=== PATIENT | female | born 1965 | race Caucasian/White ===

== ENCOUNTER 2020-11-22 20:40 | Emergency (ER) | payer OTHER ==
--- NOTE | 2020-11-22 20:53 | EDM.PDOC ---
ED HPI GENERAL MEDICAL PROBLEM - General Chief Complaint: General Stated Complaint: left flank pain Time Seen by Provider: 11/22/20 20:47 Source of Information: Reports: Patient, Family (), Old Records ([facility] EMR. No paper hospital chart available.) History Limitations: Reports: No Limitations - History of Present Illness INITIAL COMMENTS - FREE TEXT/NARRATIVE: The patient was brought to the emergency room via private automobile by her for evaluation of 10/10 sharp left lower lateral pleuritic type symptoms with symptoms starting at about 8 AM this morning. She denies any local injury, known exposure to infection, etc. with no medications or treatment to this point. The patient denies any chest pressure, heart flutter, dizziness, o rthostasis, orthopnea, diaphoresis, paresthesias, recent decreased exercise tolerance, or any other anginal-type symptoms. No recent history of abdominal pain, heartburn, nausea, diarrhea, melena, gross hematochezia, or any food intolerance, including fatty foods, etc. with normal bowel movement yesterday. She denies any gross hematuria, colic, or the UTI symptoms. The patient also denies any recent fever, cough, wheezing, dyspnea, etc., although some difficulty with taking a deep breath as above. Onset: Today, Gradual Onset Date: 11/22/20 Onset Time: 08:00 Duration: Constant, Getting Worse Location: Reports: Chest. Denies: Head, Face, Neck, Abdomen, Back, Pelvis, Upper Extremity, Left, Upper Extremity, Right, Lower Extremity, Left, Lower Extremity, Right, Radiates to Quality: Reports: Sharp Severity: Severe Improves with: Reports: Rest Worsens with: Reports: Breathing Context: Reports: Other (As above). Denies: Sick Contact, Trauma Associated Symptoms: Reports: Confusion, Chest Pain (Pleurisy). Denies: Cough, cough w sputum, Diaphoresis, Fever/Chills, Headaches, Loss of Appetite, Malaise, Nausea/Vomiting, Rash, Shortness of Breath, Syncope, Weakness Treatments DOCUMENTATION LEAD: Reports: Other (see below) (None) - Related Data Allergies Allergy/AdvReac Type Severity Reaction Status Date / Time No Known Allergies Allergy Verified 11/22/20 20:41 Home Meds: Home Meds Calcium Carbonate [Calcium] 500 mg PO DAILY 11/22/20 [History] FLUoxetine [PROzac] 20 mg PO DAILY 11/22/20 [History] Fish Oil/Beverly-3 Fatty Acids [Fish Oil 1,000 MG] 1 each PO DAILY 11/22/20 [History] Multivitamin [Multi-Vitamin Daily] 1 each PO DAILY 11/22/20 [History] Vitamin E 5,000 unit PO DAILY 11/22/20 [History] Past Medical History HEENT History: Reports: Impaired Vision, Other (See Below). Denies: Allergic Rhinitis, Cataract, Glaucoma, Hard of Hearing, Macular Degeneration, Retinal Detachment Other HEENT History: Patient does wear glasses. Cardiovascular History: Reports: Other (See Below). Denies: Afib, Aneurysm, Arrhythmia, Blood Clots/VTE/DVT, CAD, Cardiomyopathy, Heart Failure, Heart Murmur, High Cholesterol, Hypertension, HI, PVD, Syncope Other Cardiovascular History: Nonsymptomatic hypertension. Respiratory History: Reports: None. Denies: Asthma, Bronchitis, Recurrent, C OPD, Intubation, Previous, PE, Pneumonia, Recurrent, Pneumothorax, Sleep Apnea, TB Gastrointestinal History: Reports: None. Denies: Bowel Obstruction, Celiac Disease, Cholelithiasis, Chronic Constipation, Chronic Diarrhea, Colon Polyp, Fecal Incontinence, Gastritis, GERD, GI Bleed, Hepatitis, Hiatal Hernia, Irritable Bowel Syndrome, Jaundice, Pancreatitis Genitourinary History: Reports: None. Denies: Acute Renal Failure, Chronic Renal Insuffiency, Renal Calculus, Retention, Urinary, STD, Urinary Incontinence, UTI, Recurrent ASSEMBLING INSPECTOR History: Reports: . Denies: Dysfunctional Uterine Bleeding, Endometriosis, Fibroids, Polycystic Ovaries, Spontaneous : 6 Para: 6 LMP (Approximate): Other (See Below) Other ASSEMBLING INSPECTOR History: Menses currently. Full term without complications during pregnancies or deliveries Musculoskeletal History: Reports: Arthritis, Back Pain, Chronic, Fracture, Neck Pain, Chronic, Osteoarthritis, Other (See Below). Denies: Amputation, Gout, RA, SLE Other Musculoskeletal History: Right ankle fracture in 2011. Phalangeal fracture of digit #2 of the right hand in about 2017. Neurological History: Reports: Concussion, Head Trauma, Neuropathy, Peripheral, Other (See Below). Denies: CVA, Headaches, Chronic, Migraines, MS, Parkinson's, Seizure, TIA, Vertigo Other Neuro History: Head concussion at about 10 years of age. Psychiatric History: Reports: Anxiety, Depression, Psych Hospitalization(s), Suicidal Ideation, Other (See Below). Denies: Abuse, Victim of, ADD, ADHD, Addiction, Dementia, PTSD, Suicide Attempt Other Psychiatric History: Psychiatric hospitalizations in 1985, 1986, and 1994. Endocrine/Metabolic History: Reports: None. Denies: Diabetes, Gestational, Diabetes, Type I, Diabetes, Type II, Diabetes Mellitus, Type 3c, Hypothyroidism, IDDM, Obesity/BMI 30+ Hematologic History: Reports: Blood Transfusion(s), Other (See Below). Denies: Anemia, Iron Deficiency Other Hematologic History: Blood transfusion after first child's delivery secondary to post hemorrhage. Immunologic History: Reports: None. Denies: AIDS, HIV, SLE Oncologic (Cancer) History: Reports: None. Denies: Basal Cell Carcinoma, Breast, Cervix, Colon, Hodgkin's Lymphoma, Leukemia, Lymphoma, Malignant Melanoma, Non-Hodgkin's Lymphoma, Ovarian, Squamous Cell Carcinoma, Uterine Dermatologic History: Reports: None. Denies: Eczema, Psoriasis - Infectious Disease History Infectious Disease History: Reports: Chicken Pox. Denies: C-Difficile, Measles, Meningitis, Mononucleosis, MRSA, Mumps, Novel Coronavirus (No immunizations to this point), Pertussis (Whooping Cough), Rheumatic Fever, Rubella, Scarlet Fever, Shingles, TB - Past Surgical History Head Surgeries/Procedures: Reports: None HEENT Surgical History: Reports: Oral Surgery, Other (See Below). Denies: A denoidectomy, Cataract Surgery, Eye Surgery, Laser Surgery, LASIK, Myringotomy w Tube(s), Naso-Sinus Surgery, Tonsillectomy Other HEENT Surgeries/Procedures: [place] teeth extraction x2 at about age 41. Cardiovascular Surgical History: Reports: None. Denies: Varicose Respiratory Surgical History: Reports: None. Denies: Thoracentesis GI Surgical History: Reports: Colonoscopy, Other (See Below). Denies: Appendectomy, Cholecystectomy, EGD, Hernia, Abdominal, Hernia, Inguinal, Hernia Repair/Other, Polypectomy Other GI Surgeries/Procedures: Colonoscopy in about 2012. Female Surgical History: Reports: Tubal Ligation, Other (See Below). Denies: Breast Biopsy, Section, D&C, Hysterectomy, Oophorectomy, Salpingo- Oophorectomy Other Female Surgeries/Procedures: Bilateral tubal ligation at age 44. Endocrine Surgical History: Reports: None. Denies: Thyroid Biopsy Neurological Surgical History: Reports: None. Denies: C-Spine, Discectomy, Laminectomy, Lumbar Spine, Sacral Spine, Spinal Fusion, Thoracic Spine, Vertebroplasty Musculoskeletal Surgical History: Reports: None. Denies: Arthroscopic Procedure, Carpal Tunnel, Ganglion Cyst, Joint Replacement, ORIF, Shoulder Surgery Oncologic Surgical History: Reports: None Dermatological Surgical History: Reports: None - Past Imaging History Past Imaging History: Reports: Mammogram (Last on 07/13/2020.) Social & Family History - Tobacco Use Tobacco Use Status *Q: Never Tobacco User Tobacco Use Within Last Twelve Months: No Used Tobacco, but Quit: No Smoking Cessation Information Provided To Patient: No Second Hand Smoke Exposure: No Second Hand Smoke Education Provided: No - Caffeine Use Caffeine Use: Reports: Soda (12 sodas per month). Denies: Coffee, Energy Drinks, Tea - Alcohol Use Alcohol Use History: No Days Per Week of Alcohol Use: 0 Number of Drinks Per Day: 0 Number of Drinks Per Day Comment: No previous DWIs, problems with alcohol abuse, etc. 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 ED EXAM, GENERAL - Physical Exam Exam: See Below Exam Limited By: No Limitations General Appearance: Alert, WD/WN, No Apparent Distress, Anxious (Mild) Eye Exam: Bilateral Eye: EOMI, Normal Inspection (No vertigo or nystagmus. Patient is wearing glasses.), PERRL Ears: Normal External Exam, Normal Canal, Hearing Grossly Normal, Normal TMs Nose: Normal Inspection, Normal Mucosa, No Blood Throat/Mouth: Normal Inspection, Normal Lips, Normal Teeth, Normal Gums, Normal Oropharynx, Normal Voice, No Airway Compromise. No: Dysphagia, Perioral Cyanosis Head: Atraumatic, Normocephalic. No: Facial Swelling, Facial Tenderness, Sinus Tenderness Neck: Normal Inspection, Supple, Non-Tender, Full Range of Motion. No: Carotid Bruit, Lymphadenopathy (L), Lymphadenopathy (R), Thyromegaly Respiratory/Chest: No Respiratory Distress, Lungs Clear, Normal Breath Sounds, No Accessory Muscle Use. No: Chest Non-Tender (By palpation however moderate pleuritic type symptoms with deep inspiration), Pleural Rub, Retractions Cardiovascular: Normal Peripheral Pulses, Regular Rate, Rhythm, No Edema, No Gallop, No JVD, No Murmur, No Rub. No: Gallop/S3, Gallop/S4, Friction Rub Peripheral Pulses: 2+: Radial (L), Radial (R), Dorsalis Pedis (L), Dorsalis Pedis (R) GI/Abdominal: Normal Bowel Sounds, Soft, Non-Tender, No Organomegaly, No Distention, No Abnormal Bruit, No Mass, Other (Mild obesity). No: Guarding (Female) Exam: Deferred Rectal (Female) Exam: Deferred Back Exam: Normal Inspection, Full Range of Motion. No: CVA Tenderness (L), CVA Tenderness (R), Muscle Spasm Extremities: Normal Inspection, Normal Range of Motion, Non-Tender, No Pedal Edema, Normal Capillary Refill. No: Nirmala's Sign Neurological: Alert, Oriented, CN II-XII Intact, Normal Cognition, Normal Gait, Normal Reflexes (Negative Babinski's), No Motor/Sensory Deficits Psychiatric: Anxious (Mild), Depressed Mood (Mild) Skin Exam: Warm, Dry, Intact, Normal Color, No Rash. No: Diaphoretic, Ecchymosis, Petechiae, Wound/Incision Lymphatic: No Adenopathy Course - Vital Signs Last Recorded V/S: Last Vital Signs Temp 37.3 C 11/22/20 20:47 Pulse 68 11/22/20 21:52 Resp 12 11/22/20 21:52 BP 99/68 11/22/20 21:52 Pulse Ox 100 11/22/20 21:52 Vital Signs - 24 hr 11/22/20 11/22/20 11/22/20 20:41 20:47 21:30 Temperature [ 37.3 C Temporal] Pulse, 68 66 66 Peripheral [ Right Pulse Oximetry] Respiratory 17 12 14 Rate Blood Pressure 98/73 129/64 119/62 [Right Upper Arm] O2 Sat by Pulse 98 98 98 Oximetry 11/22/20 21:52 Temperature [ Temporal] Pulse, 68 Peripheral [ Right Pulse Oximetry] Respiratory 12 Rate Blood Pressure 99/68 [Right Upper Arm] O2 Sat by Pulse 100 Oximetry - Orders/Labs/Meds Orders: Active Orders 24 hr Category Date Time Status Cardiac Monitoring [RC] CONTINUOUS Care 11/22/20 20:54 Active Communication Order [RC] ROUTINE Care 11/22/20 20:54 Active Oxygen Therapy, ED [RC] CONTINUOUS Care 11/22/20 20:54 Active Peripheral IV Care [RC] . DIRECTED Care 11/22/20 20:54 Active Pulse Oximetry [RC] CONTINUOUS Care 11/22/20 20:54 Active Up With Assistance [RC] ASDIRECTED Care 11/22/20 20:54 Active Nothing Per Oral Diet [DIET] Diet 11/22/20 Breakfast Active Chest 2V [CR] Stat Exams 11/22/20 20:54 Taken Chest PE [Ang Chest] [CT] Stat Exams 11/22/20 21:54 Stop Req CULTURE BLOOD [BC] Stat Lab 11/22/20 21:05 Received CULTURE BLOOD [BC] Stat Lab 11/22/20 21:25 Received Sodium Chloride 0.9% [Saline Flush] Med 11/22/20 20:53 Active 10 ml FLUSH ASDIRECTED PRN Blood Culture x2 Reflex Set [OM.PC] Stat Oth 11/22/20 20:54 Ordered Obtain Past Medical Record [OM.PC] Stat Oth 11/22/20 20:54 Active Peripheral IV Insertion Adult [OM.PC] Stat Oth 11/22/20 20:54 Ordered Resuscitation Status Routine Resus Stat 11/22/20 20:53 Ordered Medication Orders Sodium Chloride (Sodium Chloride 0.9% 10 Ml Syringe) 10 ml FLUSH ASDIRECTED PRN PRN Reason: Keep Vein Open Last Admin: 11/22/20 22:15 Dose: 10 ml Documented by: Admin: 11/22/20 21:11 Dose: 10 ml Documented by: Admin: 11/22/20 21:07 Dose: 10 ml Documented by: MARLINE Labs: Laboratory Tests 11/22/20 11/22/20 11/22/20 Range/Units 21:00 21:05 21:05 WBC 6.0 (4.0-10.2) K/uL RBC 3.77 (3.77-5.09) M/uL Hgb 11.9 (11.7-15.5) g/dL Hct 35.9 (34.0-46.0) % MCV 95.2 (84.0-98.0) fL MCH 31.6 (28.2-33.3) pg MCHC 33.1 (31.7-36.0) g/dL RDW 12.2 (11.2-14.1) % Plt Count 241 (150-350) K/uL Neut % (Auto) 63.9 (45.0-80.0) % Lymph % (Auto) 24.4 (10.0-50.0) % [place] % (Auto) 10.0 (2.0-14.0) % Eos % (Auto) 1.5 (0.0-5.0) % Baso % (Auto) 0.2 (0.0-2.0) % Neut # (Auto) 3.86 (1.40-7.00) K/uL Lymph # (Auto) 1.47 (0.50-3.50) K/uL [place] # (Auto) 0.60 (0.00-1.00) K/uL Eos # (Auto) 0.09 (0.00-0.50) K/uL Baso # (Auto) 0.01 (0.00-0.20) K/uL PT 9.6 (9.5-12.0) SEC INR 1.0 APTT 24.1 L (24.5-32.8) SEC D-Dimer, Quantitative (0-400) ng/mL Sodium (136-145) mmol/L Potassium (3.5-5.1) mmol/L Chloride (98-107) mmol/L Carbon Dioxide (21.0-32.0) mmol/L BUN (7-18) mg/dL Creatinine (0.51-1.17) mg/dL Est Cr Clr Drug Dosing Estimated GFR (MDRD) mL/min Glucose (70-99) mg/dL Lactic Acid (0.4-2.0) mmol/L Calcium (8.5-10.1) mg/dL Magnesium (1.8-2.4) mg/dL Total Bilirubin (0.2-1.0) mg/dL AST (15-37) U/L ALT (12-78) U/L Alkaline Phosphatase (46-116) IU/L Total Protein (6.4-8.2) g/dL Albumin (3.4-5.0) g/dL SARS-CoV-2 RNA (CHETAN) Negative (NEGATIVE) 11/22/20 11/22/20 11/22/20 Range/Units 21:05 21:05 21:05 WBC (4.0-10.2) K/uL RBC (3.77-5.09) M/uL Hgb (11.7-15.5) g/dL Hct (34.0-46.0) % MCV (84.0-98.0) fL MCH (28.2-33.3) pg MCHC (31.7-36.0) g/dL RDW (11.2-14.1) % Plt Count (150-350) K/uL Neut % (Auto) (45.0-80.0) % Lymph % (Auto) (10.0-50.0) % [place] % (Auto) (2.0-14.0) % Eos % (Auto) (0.0-5.0) % Baso % (Auto) (0.0-2.0) % Neut # (Auto) (1.40-7.00) K/uL Lymph # (Auto) (0.50-3.50) K/uL [place] # (Auto) (0.00-1.00) K/uL Eos # (Auto) (0.00-0.50) K/uL Baso # (Auto) (0.00-0.20) K/uL PT (9.5-12.0) SEC INR APTT (24.5-32.8) SEC D-Dimer, Quantitative 705 H (0-400) ng/mL Sodium 144 (136-145) mmol/L Potassium 4.1 (3.5-5.1) mmol/L Chloride 106 (98-107) mmol/L Carbon Dioxide 30.3 (21.0-32.0) mmol/L BUN 16 (7-18) mg/dL Creatinine 1.01 (0.51-1.17) mg/dL Est Cr Clr Drug Dosing TNP Estimated GFR (MDRD) 57 mL/min Glucose 103 H (70-99) mg/dL Lactic Acid 0.6 (0.4-2.0) mmol/L Calcium 9.2 (8.5-10.1) mg/dL Magnesium 2.2 (1.8-2.4) mg/dL Total Bilirubin 0.2 (0.2-1.0) mg/dL AST 27 (15-37) U/L ALT 31 (12-78) U/L Alkaline Phosphatase 90 (46-116) IU/L Total Protein 6.2 L (6.4-8.2) g/dL Albumin 3.4 (3.4-5.0) g/dL SARS-CoV-2 RNA (CHETAN) (NEGATIVE) Meds: Medications Generic Name Dose Route Start Last Admin Trade Name Freq PRN Reason Stop Dose Admin Sodium Chloride 10 ml 11/22/20 20:53 11/22/20 22:15 Sodium Chloride 0.9% 10 Ml Syringe FLUSH 10 ml ASDIRECTED PRN Administration Keep Vein Open Discontinued Medications Generic Name Dose Route Start Last Admin Trade Name Freq PRN Reason Stop Dose Admin Famotidine 40 mg 11/22/20 20:58 11/22/20 21:05 Famotidine 20 Mg/2 Ml Sdv IVPUSH 11/22/20 20:59 40 mg ONETIME ONE Administration Ketorolac Tromethamine 30 mg 11/22/20 20:58 11/22/20 21:05 Ketorolac 30 Mg/Ml Sdv IVPUSH 11/22/20 20:59 30 mg ONETIME ONE Administration Methylprednisolone Sodium Succinate 125 mg 11/22/20 22:00 11/22/20 22:15 Methylprednisolone Sodium Succinate 125 Mg/2 Ml Sdv IVPUSH 11/22/20 22:01 125 mg ONETIME ONE Administration - Radiology Interpretation Free Text/Narrative:: equipment monitor phototypesetting shows normal sinus rhythm with heart rate in the 60s with no ectopy or arrhythmia. Chest x-ray, PA and lateral, shows mild possible pulmonary obstructive disease with no pulmonary infiltrates, cardiomegaly, CHF, pneumothorax, etc. Mild hiatal hernia noted. Mild osteoarthritic changes noted in the thoracic spine. Departure - Departure Time of Disposition: 22:30 Disposition: Home, Self-Care 01 Condition: Good Clinical Impression: Pleurisy, Mixed anxiety and depressive disorder, D-dimer, elevated Osteoarthritis Qualifiers: Osteoarthritis location: multiple joints Osteoarthritis type: primary Qualified Code(s): M89.49 - Other hypertrophic osteoarthropathy, multiple sites - Discharge Information *PRESCRIPTION DRUG MONITORING PROGRAM REVIEWED*: Not Applicable *COPY OF PRESCRIPTION DRUG MONITORING REPORT IN PATIENT JONES: Not Applicable Instructions: Pleurisy, [id number] Referrals: Jacklyn Vivar PA [Primary Care Provider] - Forms: ED Department Discharge Additional Instructions: 1. Followup with your regular provider in 10-14 days as directed for reevaluation and recommended repeat D-dimer. Bring these discharge instructions with you to that visit. 2. Tylenol 650 mg by mouth every 4 hours and/or OTC ibuprofen 2-3 tabs by mouth every 6 hours with food as directed./needed. You may stagger these medications for 48-72 hours only, which essentially means that you are receiving a pain medication about every 2 hours. Next dose of ibuprofen as needed in 6 hours secondary to medications given in the emergency room. 3. The hospital will call you tomorrow concerning recommended venous Doppler studies of your lower extremities with possible additional CTA of the chest depending on availability. 4. Immediately after this visit verify that your cellular telephone's voicemail has been activated and is empty. Also verify that your home telephone's answering machine is operating properly and has space to receive messages. Note that it is sometimes necessary for us to be able to contact you at a later date to discuss your medical care. 5. Please remember that we are ALWAYS here for you and want to answer any questions you may have. Feel free to call the hospital any time and we call you back ALLIE. 6. Recommend to get a COVID-19 immunization ALLIE once current symptoms resolve. Sepsis Event Note (ED) - Focused Exam Vital Signs: Vital Signs Temp Pulse Resp BP Pulse Ox 11/22/20 21:52 68 12 99/68 100 11/22/20 21:30 66 14 119/62 98 11/22/20 20:47 37.3 C 66 12 129/64 98 11/22/20 20:41 68 17 98/73 98 - Problem List & Annotations (1) Pleurisy SNOMED Code(s): 319321136 Code(s): R09.1 - PLEURISY Status: Acute Priority: High Current Visit: Yes Onset Date: 11/22/20 Annotation/Comment:: IV Toradol given in the emergency room with overall good results additional IV Pepcid as GI prophylaxis. Additional IV Solu-Medrol was given for anti-inflammatory effect. Symptomatic relief as per discharge instructions. Despite low-grade fever no evidence of significant infection with antibiotics not warranted at this time. Close follow-up by regular provider as per discharge instructions. (2) D-dimer, elevated SNOMED Code(s): 528491864 Code(s): R79.89 - OTHER SPECIFIED ABNORMAL FINDINGS OF BLOOD CHEMISTRY Status: Acute Priority: High Current Visit: Yes Onset Date: 11/22/20 Annotation/Comment:: No CT scan available at this time secondary to equipment malfunction with various therapeutic options discussed with the patient and her . They do not wish to be transferred to [place] at this time for CTA of the chest, however they do agree to come to this facility tomorrow for venous Doppler studies of the lower extremities. They do not wish to have any subcu Lovenox or oral Eliquis therapy at this time. No direct clinical evidence of DVT or PE with excellent O2 sats on room air. Consider CTA of the chest depending on venous Doppler study results as above with otherwise close follow- up by her regular provider. (3) Mixed anxiety and depressive disorder SNOMED Code(s): 597960721 Code(s): F41.8 - OTHER SPECIFIED ANXIETY DISORDERS Status: Chronic Prior ity: Medium Current Visit: Yes Annotation/Comment:: Stable by history with no current medical therapy. (4) Osteoarthritis SNOMED Code(s): 343525783 Code(s): M19.90 - UNSPECIFIED OSTEOARTHRITIS, UNSPECIFIED SITE Status: Chronic Priority: Medium Current Visit: No Annotation/Comment:: Otherwise stable by history. Qualifiers: Osteoarthritis location: multiple joints Osteoarthritis type: primary Qualified Code(s): M89.49 - Other hypertrophic osteoarthropathy, multiple sites - Problem List Review Problem List Initiated/Reviewed/Updated: Yes - My Orders Last 24 Hours: My Active Orders 11/22/20 Breakfast Nothing Per Oral Diet [DIET] 11/22/20 20:53 Sodium Chloride 0.9% [Saline Flush] 10 ml FLUSH ASDIRECTED PRN Resuscitation Status Routine 11/22/20 20:54 Cardiac Monitoring [RC] CONTINUOUS Communication Order [RC] ROUTINE Oxygen Therapy, ED [RC] CONTINUOUS Peripheral IV Care [RC] . DIRECTED Pulse Oximetry [RC] CONTINUOUS Up With Assistance [RC] ASDIRECTED Chest 2V [CR] Stat Blood Culture x2 Reflex Set [OM.PC] Stat Obtain Past Medical Record [OM.PC] Stat Peripheral IV Insertion Adult [OM.PC] Stat 11/22/20 21:05 CULTURE BLOOD [BC] Stat 11/22/20 21:25 CULTURE BLOOD [BC] Stat 11/22/20 21:54 Chest PE [Ang Chest] [CT] Stat - Assessment/Plan Last 24 Hours: My Active Orders 11/22/20 Breakfast Nothing Per Oral Diet [DIET] 11/22/20 20:53 Sodium Chloride 0.9% [Saline Flush] 10 ml FLUSH ASDIRECTED PRN Resuscitation Status Routine 11/22/20 20:54 Cardiac Monitoring [RC] CONTINUOUS Communication Order [RC] ROUTINE Oxygen Therapy, ED [RC] CONTINUOUS Peripheral IV Care [RC] . DIRECTED Pulse Oximetry [RC] CONTINUOUS Up With Assistance [RC] ASDIRECTED Chest 2V [CR] Stat Blood Culture x2 Reflex Set [OM.PC] Stat Obtain Past Medical Record [OM.PC] Stat Peripheral IV Insertion Adult [OM.PC] Stat 11/22/20 21:05 CULTURE BLOOD [BC] Stat 11/22/20 21:25 CULTURE BLOOD [BC] Stat 11/22/20 21:54 Chest PE [Ang Chest] [CT] Stat Assessment:: As above Plan: As above. Extensive precautions were given to the patient and her , who are in agreement with the treatment plan. See Patient Instructions for further treatment and plan.
[2020-11-22] MEDS ORDERED: Ketorolac 30 MG/ML SDV IVPUSH ONE (20:58)
[2020-11-22] MEDS ORDERED: Famotidine 20 MG/2 ML SDV IVPUSH ONE (20:58)
[2020-11-22] MEDS: Sodium Chloride 0.9% 10 ML Syringe FLUSH PRN ×3 (21:07→22:15)
[2020-11-22 21:25] LABS: CHLORIDE,CL 106 mmol/L (98-107); SODIUM,NA 144 mmol/L (136-145)
[2020-11-22 21:36] LABS: PTT,PARTIAL THROMBOPLSTIN TIME 24.1 SEC (24.5-32.8)
[2020-11-22] MEDS ORDERED: methylPREDNISolone Sodium Succinate 125 MG/2 ML SDV IVPUSH ONE (22:00)
== END 2020-11-22 22:30 | disposition home or self-care (01) ==
LOC: LL.ED 20:40
DX: R09.1 Pleurisy (principal); M89.49 Other hypertrophic osteoarthropathy, multiple sites; F41.8 Other specified anxiety disorders; R79.1 Abnormal coagulation profile; Z79.899 Other long term (current) drug therapy
CPT/HCPCS: 36415; 71046; 80053; 83605; 83735; 85025; 85379; 85610; 85730; 87040; 87635; 96374; 96375; 99284; J1885; J2930; J3490; U0002

== ENCOUNTER → 2021-04-15 | Day surgery (SDC) | payer OTHER ==
[~2021-04-15] MED LIST: Glycopyrrolate 0.2 MG/ML SDV ONE; Lactated Ringers 1,000 ML IV SCH; Midazolam 1 MG/ML 2 ML SDV ONE; Propofol 200 MG/20 ML SDV ONE; Sodium Chloride 0.9% 10 ML Syringe FLUSH PRN
--- NOTE | 2021-04-15 13:14 | PCM.PN ---
- General Info Date of Service: 04/15/21 - Review of Systems Systems Review Comment:: 55 y/o female referred for EGD and colonoscopy. Patient has been having some symptoms of upper abdominal pain. She also is due for colon cancer screening exam. Her recent history and physical is reviewed and no significant changes are noted. Patient appears to be stable to proceed with EGD and colonoscopy. I have discussed the proposed endoscopic procedures with the patient. Risks such as but not limited to bleeding and GI injury reviewed. She agrees to proceed. - Patient Data Vitals - Most Recent: Last Vital Signs Temp 97.6 F 04/15/21 12:16 Pulse 70 04/15/21 12:16 Resp 18 04/15/21 12:16 BP 111/63 04/15/21 12:16 Pulse Ox 98 04/15/21 12:16 Weight - Most Recent: 58.967 kg Med Orders - Current: Current Medications Lactated Ringer's (Ringers, Lactated) 1,000 mls @ 125 mls/hr IV ASDIRECTED RAE Last Admin: 04/15/21 12:14 Dose: 125 mls/hr Documented by: Sodium Chloride (Sodium Chloride 0.9% 10 Ml Syringe) 10 ml FLUSH ASDIRECTED PRN PRN Reason: Keep Vein Open Discontinued Medications Midazolam HCl (Midazolam 1 Mg/Ml 2 Ml Sdv) Confirm Administered Dose 2 mg .ROUTE .STK-MED ONE Stop: 04/15/21 09:20 Propofol (Propofol 200 Mg/20 Ml Sdv) Confirm Administered Dose 400 mg .ROUTE .STK-MED ONE Stop: 04/15/21 09:21 Sepsis Event Note - Focused Exam Vital Signs: Vital Signs Temp Pulse Resp BP Pulse Ox 04/15/21 12:16 97.6 F 70 18 111/63 98 - Problem List Review Problem List Initiated/Reviewed/Updated: Yes - Assessment Assessment:: Abdominal pain Colon cancer screening - Plan Plan:: EGD and colonoscopy
--- NOTE | 2021-04-15 14:12 | PCM.OPNOTE ---
- General Post-Op/Procedure Note Date of Surgery/Procedure: 04/15/21 Operative Procedure(s): EGD with Biopsy and Colonoscopy Findings: Moderate Gastritis with small erosions in gastric antrum Moderate Sigmoid Diveticulosis Pre Op Diagnosis: Abdominal Pain. Colon Cancer Screening Post-Op Diagnosis: Gastritis. Sigmoid Diverticulosis Anesthesia Technique: MAC Primary Surgeon: Ben Wise Pathology: Biopsies of Gastric Antrum EBL in mLs: 2 Complications: None Condition: Good
--- NOTE | 2021-04-15 21:31 | OR ---
Date of Procedure: 04/15/2021 PREOPERATIVE DIAGNOSIS: Abdominal pain, colon cancer screening. POSTOPERATIVE DIAGNOSIS: Gastritis, sigmoid diverticulosis. OPERATION PERFORMED: Esophagogastroduodenoscopy with biopsy and colonoscopy. INDICATIONS FOR SURGERY: This 55-year-old female has been having some symptoms of intermittent postprandial upper abdominal pain. She is referred for a diagnostic upper endoscopy. She also is due for colon cancer screening as it has been several years since her last colon exam. FINDINGS: On upper endoscopy, the patient does have some hyperemia and signs of visible inflammation in the region of the antrum. Some slightly thickened folds are noted as well as very superficial erosions in the area of the inflammation. The remainder of the stomach appears normal as does the duodenum and the esophagus. During colonoscopy, the patient was noted to have a moderate degree of diverticulosis in the sigmoid region, but no other abnormalities were noted. DESCRIPTION OF PROCEDURE: The patient was taken to the operating room. She was given intravenous sedation and with her in the left lateral decubitus position, the Olympus gastroscope was advanced through a mouth guard into the oral cavity. Under direct visualization, the scope was advanced down through the oropharynx into the esophagus and then down through the esophagus, stomach, and into the duodenum, where examination to the 3rd portion was performed. Careful examination of the duodenum was carried out and then the scope was withdrawn back into the stomach, where full examination including retroflexed examination of the fundus was performed. Random biopsies of the antrum were taken to rule out H pylori. The GE junction and esophagus were then carefully examined as the scope was withdrawn. Attention was turned to colonoscopy. Digital rectal exam shows no rectal masses. The Olympus colonoscope was inserted into the rectum. Retroflexed examination of the rectal canal was performed. The scope was then carefully advanced under direct visualization through the entire length of the colon until the cecum was reached. Cecal acquisition was confirmed by noting normal internal cecal anatomy including the appendiceal orifice and the ileocecal valve. The light was also noted to transilluminate the abdominal wall in the right lower quadrant. After examining the cecum, the scope was slowly withdrawn sequentially re-examining the colonic segments until the entire colon and rectum had been fully examined. The scope was removed and the patient was taken from the operating room in satisfactory condition. ESTIMATED BLOOD LOSS: 2 mL. COMPLICATIONS: None. PROGNOSIS: Good. LEN Wise MD /[id number]
== END | disposition home or self-care (01) ==
LOC: LL.SDS 11:25
PROVIDERS: ATTEND Surgery
DX: Z12.11 Encounter for screening for malignant neoplasm of colon (principal); K57.30 Diverticulosis of large intestine without perforation or abscess without bleeding; K29.70 Gastritis, unspecified, without bleeding; K31.89 Other diseases of stomach and duodenum; R13.10 Dysphagia, unspecified
CPT/HCPCS: 00813; J2250; J2704; J3490; J7120